=== PATIENT | male | born 1955 | race Caucasian/White ===

== ENCOUNTER 2022-11-21 10:26 | Emergency (ER) | payer MEDICARE, BC, SELFPAY ==
[2022-11-21] VITALS (7 sets, daily range): BP systolic 121–150; BP diastolic 63–84; PULSE 86–112; RESP 16–20; TEMP 37.3; O2SAT 91–94
--- NOTE | 2022-11-21 11:06 | XR_ITS ---
WS: [id number] Exam: XR chest 1V portable [id number] Date/Time of Exam: 11/21/2022 11:19 AM Reason For Exam: cough No priors. The lungs are fully expanded. No acute infiltrates are noted. Plaque atelectasis in the bilateral low er lung zones. Cardiomediastinal silhouette is unremarkable. Bony elements are intact. XR/XR chest 1V portable [id number] IMPRESSION: 1. No acute cardiopulmonary finding.
--- NOTE | 2022-11-21 11:08 | ECG_ITS ---
[facility] Test Date: 2022-11-21 Pat Name: Ari Dumont Department: Room: Gender: Male Edi Developer: : 1955 Requested By: Kaleb Flores Order Number: [id number] Zafar MD: Bernie Lopez M.D. Measurements Intervals [place] Rate: 110 P: 62 FL: 159 QRS: 36 QRSD: 99 T: 63 QT: 316 QTc: 428 Interpretive Statements SINUS TACHYCARDIA No previous ECG available for comparison Electronically Signed On 11-22-2022 9:13:02 [employer] by Bernie Lopez M.D. [id number]
--- NOTE | 2022-11-21 11:09 | ED_ITS ---
HPI - SOB/Dyspnea General: Chief Complaint: Shortness of Breath/Dyspnea Stated Complaint: Flu + since saturday, symptoms since saturday Time Seen by Provider: 11/21/22 10:52 Source: patient and family Mode of arrival: ambulatory Limitations: no limitations History of Present Illness: HPI Narrative: This patient has made his way to the emergency department by private vehicle accompanied by his spouse this morning. He is feeling ill and has felt ill since Saturday. He he has had a positive influenza test at that time. Subsequently he is continue to have cough which is increasingly productive of purulent and sometimes blood tinged sputum. He has had temperatures to 103 body aches and chills and sore throat. His has had some mild symptoms but she is feeling better. He did start a course of Tamiflu at the onset of this disease. He has no history of congestive heart failure or cardiovascular disease. He has no history of COPD. No history of asthma. He is not a tobacco smoker. reports that he has had couple bouts of pneumonia in the past including an empyema that required hospitalization and drainage at [facility]. Said recent knee replacement but otherwise no other significant past medical history other than noted. No recent travel, no recent exposure to known infectious disease. They did test at home and were negative for COVID. He states his intake has been limited by sore throat as well as just not feeling well but is not had any vomiting. Does have some occasional loose stools. His chest and abdomen is sore but did not particularly when he coughs. Not having any sustained abdominal pain or chest pain. Timing: progressively worsening Exacerbating factors: coughing Associated symptoms: Reports fever(s); Deny dizziness, extremity pain, nausea, palpitations, polydipsia, polyuria, syncope or vomiting Review of Systems Const: Reports: fever(s), chills and body aches Eyes: Denies: change in vision ENMT: Reports: throat pain, odynophagia and nasal congestion Card: Denies: palpitations, syncope, pre-syncope or dyspnea on exertion Resp: Reports: productive cough; Denies: wheezing or stridor GI: Denies: nausea, vomiting, hematemesis, hematochezia or melena : Denies: flank pain, difficulty urinating, dysuria or urinary frequency Musc: Denies: neck pain, back pain, extremity pain or extremity swelling Skin/Breast: Denies: rash or pruritus Neuro: Denies: headache(s), numbness in extremities, weakness in extremities or dizziness Endo: Denies: polyuria or polydipsia Physical Exam Narrative: EXAM NARRATIVE: Patient appears ill. He is lying on the emergency department cot. He does spontaneously open eyes answers questions in a goal-directed fashion without any conversational dyspnea or affected voice. Const: COMMON NORMALS: average body habitus, patient oriented x3 and alert GENERAL APPEARANCE: well kempt and ill appearing HENMT: COMMON NORMALS: normocephalic, atraumatic, Normal nasal mucous membranes and turbinates present, moist oral mucous membranes and oropharynx normal (No obvious mass, uveal deviation; has mobile tongue) HEAD & SCALP: normocephalic and atraumatic FACE & SINUS: normal facial exam and sinuses nontender NOSE: Normal nasal mucous membranes and turbinates present Eye: COMMON NORMALS: Equal, round and reactive pupils present, EOMs intact bilaterally and conjunctivae normal CONJUNCTIVA: Yes conjunctivae normal PUPIL: Yes Equal, round and reactive pupils present Neck/C-Spine: COMMON NORMALS: full ROM, no lymphadenopathy, no meningeal signs and no JVD Chest: COMMONS NORMALS: normal inspection of the chest OTHER: Tenderness anteriorly to palpation of the chest wall. No ecchymosis, subcutaneous emphysema, skin rashes. Resp: COMMON NORMALS: normal respiratory effort EFFORT & INSPECTION: Yes able to speak in complete sentences AUSCULTATION: crackles and rhonchi Cardio: COMMON NORMALS: no JVD, regular rate, No murmurs present (Cardio) and Peripheral pulses 2+ throughout RATE: regular rate PERIPHERAL PULSES: Peripheral pulses 2+ throughout GI: COMMON NORMALS: Normal to inspection, nondistended, normoactive bowel sounds present, Soft to palpation and no masses PALPATION: Yes Soft to palpation : COMMON NORMALS: Yes no CVA tenderness BLADDER/KIDNEY EXAM: Yes no CVA tenderness Back/Pelvis: COMMON NORMALS: no CVA tenderness, thoracic and lumbar spine normal to inspection, no thoracic nor lumbar tenderness and thoraco-lumbar ROM normal Extremity: COMMON NORMALS: normal to inspection, full ROM, capillary refill normal, no calf tenderness and no pedal edema Neuro: COMMON NORMALS: patient oriented x3, moves all extremities and no focal motor deficits SENSORIUM/ORIENTATION: Yes alert MENINGEAL SIGNS: Yes no me ningeal signs CRANIAL NERVES: Yes CN normal except as noted SPEECH: speech normal Psych: COMMON NORMALS: mental status grossly normal APPEARANCE: Yes well kempt Skin: COMMON NORMALS: no rashes or lesions noted and turgor normal GENERAL SKIN EXAM: no rashes or lesions noted and turgor normal Course Reevaluation(s): Reevaluation #1: Patient seems to be more interactive at this time. I reviewed his current findings with both he and his spouse. Despite the paucity of chest x-ray findings given his symptoms as well as his significant purulent sputum production I think I am going to opt for antibiotic treatment of potential concomitant bacterial pneumonia superimposed on his influenza. Time: 13:02 Reevaluation #2: Patient remained stable. Pulse oximetry is 93 to 95% on room air. Respiratory rate is normal blood pressure is normal heart rate is still borderline 100-1 10. No new or other focal findings on repeat examination. We reviewed risks and benefits of continued observation versus home treatment. While he does not have a infiltrative process on chest x-ray today his sputum pr oduction and other clinical features suggest likely pneumonia. After consideration and discussion both he and his spouse have agreed to be discharged to home with continued monitoring of pulse oximetry, other vital signs, hydration and antibiotic treatment. Time: 14:28 Vital Signs: Vital signs: Vital Signs Temperature 99.2 F 11/21/22 11:01 Pulse Rate 87 11/21/22 13:53 Respiratory Rate 20 H 11/21/22 13:53 Blood Pressure 131/75 11/21/22 13:53 Pulse Oximetry 92 11/21/22 13:53 Oxygen Delivery Me thod 11/21/22 13:53 MDM - SOB/Dyspnea Medical Decision Making 67-year-old generally healthy gentleman who presents with malaise and cough and known positive influenza. Evaluation here showed initially a somewhat uncomfortable and ill-appearing gentleman who after hydration and reevaluation has improved. Chest x-ray was reassuring but the patient is producing considerable purulent sputum suggestive of a lower respiratory infection that is not. Radiographically at this point. His lactate is reassuring as well as his other parameters and he is able to eat and drink. His curb 65 score puts him at a low risk and certainly suitable for outpatient therapy. This was all reviewed with the patient and spouse who agreed to outpatient therapy with return precautions and close follow-up. Stable at this time. Medical Records I reviewed the patient's medical records. Lab Data I reviewed the patient's lab results. 11/21/22 11:36 11/21/22 11:36 Labs/Radiology: Radiology Impressions Chest X-Ray 11/21/22 11:06 IMPRESSION: 1. No acute cardiopulmonary finding. Laboratory Results WBC 13.6 10^3/uL (4.0-10.0) H 11/21/22 11:36 RBC 4.63 10^6/uL (4.1-5.3) 11/21/22 11:36 Hgb 14.3 g/dL (11.7-16.6) 11/21/22 11:36 Hct 44.0 % (42.0-52.0) 11/21/22 11:36 MCV 95.0 fl (80-94) H 11/21/22 11:36 MCH 30.9 pg (28.0-34.0) 11/21/22 11:36 MCHC 32.5 g/dL (30.0-36.0) 11/21/22 11:36 RDW 12.5 % (12.1-15.1) 11/21/22 11:36 Plt Count 265 10^3/cmm (130-400) 11/21/22 11:36 MPV 8.9 fL (7.4-10.4) 11/21/22 11:36 Neut % (Auto) 87.5 % 11/21/22 11:36 Lymph % (Auto) 5.5 % 11/21/22 11:36 [place] % (Auto) 6.0 % 11/21/22 11:36 Eos % (Auto) 0.2 % 11/21/22 11:36 Baso % (Auto) 0.3 % 11/21/22 11:36 Neut # (Auto) 11.85 10^3/uL (1.8-7.7) H 11/21/22 11:36 Lymph # (Auto) 0.8 10^3/uL (0.8-4.8) 11/21/22 11:36 [place] # (Auto) 0.8 10^3/uL (0.2-0.9) 11/21/22 11:36 Eos # (Auto) 0.0 10^3/uL (0.0-0.8) 11/21/22 11:36 Baso # (Auto) 0.0 10^3/uL (0.0-0.1) 11/21/22 11:36 Nucleated RBC % (auto) 0 % 11/21/22 11:36 Nucleated RBCs # 0.0 /100WBC 11/21/22 11:36 Sodium 136 mmol/L (136-145) 11/21/22 11:36 Potassium 4.3 mmol/L (3.5-5.1) 11/21/22 11:36 Chloride 101 mmol/L (98-107) 11/21/22 11:36 Carbon Dioxide 24 mmol/L (22-29) 11/21/22 11:36 Anion Gap 15.3 (5-19) 11/21/22 11:36 BUN 10 mg/dL (8-23) 11/21/22 11:36 Creatinine 1.1 mg/dL (0.7-1.2) 11/21/22 11:36 GFR Calculation 67.2 mL/min (90-130) L 11/21/22 11:36 Glucose 118 mg/dL (65-115) H 11/21/22 11:36 Calculated Osmolality 282 mOsm/kg (285-295) L 11/21/22 11:36 Lactate 1.2 mmol/L (0.5-2.2) 11/21/22 11:36 Calcium 9.1 mg/dL (8.5-10.5) 11/21/22 11:36 Total Bilirubin 0.4 mg/dL (0.15-1.2) 11/21/22 11:36 AST 20 U/L (0-40) 11/21/22 11:36 ALT 20 U/L (0-41) 11/21/22 11:36 Alkaline Phosphatase 80 U/L (40-130) 11/21/22 11:36 Total Protein 7.1 g/dL (6.6-8.7) 11/21/22 11:36 Albumin 3.9 g/dL (3.5-5.2) 11/21/22 11:36 Globulin 3.2 g/dL (1.3-4.6) 11/21/22 11:36 SARS-CoV-2 Ag (Rapid) negative (Negative) 11/21/22 11:11 EKG Data EKG 1: I personally reviewed and interpreted this EKG as follows: Computer Generated Interpretation: Contemporaneous review of resting EKG reveals a ventricular rate of 110 bpm with narrow complexes consistent with sinus tachycardia. SC interval, QRS duration, QTc interval normal. Normal axis. No acute ST-T wave changes noted. Discharge Plan Discharge Patient Disposition: Home Clinical Impression: Influenza, Pneumonia Condition: Stable Prescriptions: New amoxicillin-pot clavulanate 875-125 mg tablet 1 tab PO BID Qty: 20 0RF Discharge Orders: Discharge ED (Routine); Ordered 11/21/22 Ordered By: Kaleb Flores Discharge Diet: Advance as tolerated Discharge Activity: Increase activity as tolerated Patient Instructions: Opioid Safety, Pain Management Activity Restrictions/Additional Instructions: As we discussed your findings in the emergency department today did not suggest a severe illness however is important for you to keep well-hydrated, take the antibiotics as well as the guaifenesin and other [id number] medications to help treat your symptoms and sinew to improve. If you start running high fevers, become more ill, unable to eat or drink, your oxygen level contents consistently drops below 90% return to this or the nearest emergency department immediately. Coding Level of Care Code ED Die Cast Operator for Bhumi Fwalyce Exam Comprehensive
[2022-11-21] MEDS: sodium chloride 0.9% 1,000 ML 999 ML IV (11:36)
[2022-11-21 11:48] LABS: SARS Covid-2 Antigen negative (Negative)
[2022-11-21 11:52] LABS: Basophils % 0.3 %; Eosinophils % 0.2 %; Hemoglobin 14.3 g/dL (11.7-16.6); Lymphocytes # 0.8 10^3/uL (0.8-4.8); Lymphocytes % 5.5 %; Mean Corpuscular HGB Conc 32.5 g/dL (30.0-36.0); Mean Corpuscular Hemoglobin 30.9 pg (28.0-34.0); Mean Platelet Volume 8.9 fL (7.4-10.4); Monocytes # 0.8 10^3/uL (0.2-0.9); Neutrophils # 11.85 10^3/uL (1.8-7.7); Neutrophils % 87.5 %; Nucleated Red Blood Cells % 0 %; Platelet Count 265 10^3/cmm (130-400); Red Blood Count 4.63 10^6/uL (4.1-5.3); Red Cell Distribution Width 12.5 % (12.1-15.1); White Blood Count 13.6 10^3/uL (4.0-10.0)
[2022-11-21 12:11] LABS: Alanine Aminotransferase 20 U/L (0-41); Albumin Level 3.9 g/dL (3.5-5.2); Alkaline Phosphatase 80 U/L (40-130); Anion Gap 15.3 (5-19); Aspartate Amino Transferase 20 U/L (0-40); Blood Urea Nitrogen 10 mg/dL (8-23); Calcium 9.1 mg/dL (8.5-10.5); Carbon Dioxide 24 mmol/L (22-29); Chloride 101 mmol/L (98-107); Globulin 3.2 g/dL (1.3-4.6); Glomerular Filtration Rate 67.2 mL/min (90-130); Glucose 118 mg/dL (65-115); Lactate (Lactic Acid level) 1.2 mmol/L (0.5-2.2); Osmolality Calculated 282 mOsm/kg (285-295); Potassium 4.3 mmol/L (3.5-5.1); Sodium 136 mmol/L (136-145); Total Bilirubin 0.4 mg/dL (0.15-1.2); Total Protein 7.1 g/dL (6.6-8.7)
[2022-11-21] MEDS: cefTRIAXone 2,000 MG in sodium chloride 0.9% (plus) 50 ML 100 MG IV (13:10)
[2022-11-21] MEDS: dexamethasone 10 mg/mL INJ IVP (13:11)
== END 2022-11-21 14:43 | disposition home or self-care (01) ==
PROVIDERS: Emergency Provider Emergency Medicine
DX: J11.00 Influenza due to unidentified influenza virus with unspecified type of pneumonia (principal); Z20.822 Contact with and (suspected) exposure to COVID-19
CPT/HCPCS: 71045; 80053; 83605; 85025; 87040; 87070; 87426; 93005; 96365; 96375; 99285; J0696; J1100; J7030